=== PATIENT | male | born 1970 | race African-American/Black ===

== ENCOUNTER 2021-03-26 02:54 | Emergency (ER) | payer MEDICAID ==
[~2021-03-26] VITALS: Ht 175.3 cm; Wt 72.6 kg
[2021-03-26] MEDS ORDERED: ALUM & MAG HYDROX-SIMETH LIQ(MAALOX) 30 ML PO ONE (03:30)
[2021-03-26] MEDS ORDERED: DONNATAL 5ml ORAL Elix (BELLADONNA ALK-PHENOBARB) PO ONE (03:30)
[2021-03-26] MEDS ORDERED: LIDOCAINE VISCOUS 2% 15ML UD PO ONE (03:30)
[2021-03-26 03:53] LABS: Basophils # (auto) 0 10 ^3/uL (0-0.2); Basophils % (auto) 0.4 % (0.0-2.0); Eosinophils # (auto) 0 10 ^3/uL (0-0.8); Eosinophils % (auto) 0.1 % (0.0-7.0); Hematocrit 50.7 % (41.0-53.0); Hemoglobin 16.3 g/dL (13.5-17.5); Lymphocytes # (auto) 1.4 10 ^3/uL (0.4-5.4); Mean Corpuscular Hemoglobin 29.3 pg (28.0-32.0); Mean Corpuscular Hgb Conc. 32.2 g/dL (32.0-36.0); Mean Corpuscular Volume 91.1 fL (80.0-100.0); Monocytes # (auto) 0.6 10 ^3/uL (0-1.3); Monocytes % (auto) 5.4 % (0.0-12.0); Neutrophils # (auto) 9.6 10 ^3/uL (1.6-8.6); Neutrophils % (auto) 82.1 % (37.0-80.0); Red Blood Cells 5.57 10^6/uL (4.5-5.90); White Blood Cell 11.7 10^3/uL (4.4-10.8)
[2021-03-26 04:12] LABS: Albumin 3.4 g/dL (3.4-5.0); Calcium 9.3 mg/dL (8.5-10.1); Potassium 4.1 mmol/L (3.5-5.1)
[2021-03-26 04:13] LABS: INR 1.06 (0.9-1.15); Partial Thromboplastin Time 27.4 sec (23.6-33.0)
[2021-03-26 04:17] LABS: Bilirubin, Total 0.6 mg/dL (0.2-1.0); Total Protein 8.3 g/dL (6.4-8.2)
[2021-03-26] MEDS ORDERED: LIDOCAINE VISCOUS 2% 15ML UD ONE (04:35)
[2021-03-26] MEDS ORDERED: PROCHLORPERAZINE EDISYLATE 5 MG/ML 2ML VIAL IV ONE (04:45)
[2021-03-26] MEDS ORDERED: SODIUM CHLORIDE 0.9% 1,000 ML IV ONE ×2 (04:45)
[2021-03-26] MEDS ORDERED: MORPHINE SULFATE 4 MG/ML SYR/VIAL IV ONE (04:45)
[2021-03-26] MEDS ORDERED: metroNIDAZOLE 500MG/100ML 100 ML IV ONE (05:00)
[2021-03-26] MEDS ORDERED: cefTRIAXone 1GM/50ML D5W 50 ML IV ONE (05:00)
[2021-03-26 07:36] VITALS: BP 138/83
== END 2021-03-26 07:46 | disposition home or self-care (01) ==
LOC: EDBD 02:54 → ER 02:54
DX: K52.9 Noninfective gastroenteritis and colitis, unspecified (principal); R73.9 Hyperglycemia, unspecified
CPT/HCPCS: 36415; 74176; 80053; 83690; 84484; 85025; 85610; 85730; 96365; 96367; 96375; 99285; J0696; J0780; J2270; J3490; J7030

== ENCOUNTER 2021-03-28 10:19 | Inpatient (IN) | payer MEDICAID ==
[~2021-03-28] VITALS: Ht 182.9 cm; Wt 63.5 kg
[2021-03-28] MEDS ORDERED: ONDANSETRON HCL 4 MG/2 ML VIAL IV ONE (10:45)
[2021-03-28] MEDS ORDERED: MORPHINE SULFATE 4 MG/ML SYR/VIAL IV ONE (10:45)
[2021-03-28] MEDS ORDERED: SODIUM CHLORIDE 0.9% 1,000 ML IVB ONE (10:45)
[2021-03-28] MEDS ORDERED: cefTRIAXone 1GM/50ML D5W 50 ML IV ONE (12:45)
[2021-03-28] MEDS ORDERED: PANTOPRAZOLE 40 MG/10 ML VIAL INJ IV ONE (12:45)
[2021-03-28] MEDS ORDERED: metroNIDAZOLE 500MG/100ML 100 ML IV ONE (12:45)
[2021-03-28 13:29] LABS: Basophils # (auto) 0 10 ^3/uL (0-0.2); Basophils % (auto) 0.2 % (0.0-2.0); Eosinophils # (auto) 0 10 ^3/uL (0-0.8); Hematocrit 49.3 % (41.0-53.0); Lymphocytes # (auto) 0.9 10 ^3/uL (0.4-5.4); Mean Corpuscular Hemoglobin 29.4 pg (28.0-32.0); Mean Corpuscular Hgb Conc. 32.5 g/dL (32.0-36.0); Mean Corpuscular Volume 90.4 fL (80.0-100.0); Monocytes # (auto) 1.5 10 ^3/uL (0-1.3); Monocytes % (auto) 8.4 % (0.0-12.0); Neutrophils # (auto) 15.3 10 ^3/uL (1.6-8.6); Neutrophils % (auto) 86.4 % (37.0-80.0); Red Blood Cells 5.45 10^6/uL (4.5-5.90); Red Cell Distribution Width 15.1 % (11.8-14.3); White Blood Cell 17.7 10^3/uL (4.4-10.8)
[2021-03-28 13:46] LABS: INR 1.07 (0.9-1.15); Partial Thromboplastin Time 27.1 sec (23.6-33.0)
[2021-03-28 13:47] LABS: Albumin 3.1 g/dL (3.4-5.0); Calcium 8.7 mg/dL (8.5-10.1); Potassium 3.8 mmol/L (3.5-5.1)
[2021-03-28 13:51] LABS: BUN/Creatinine Ratio 18.7; Bilirubin, Total 0.7 mg/dL (0.2-1.0); Total Protein 7.8 g/dL (6.4-8.2)
[2021-03-28] MEDS: PANTOPRAZOLE 40 MG/10 ML VIAL INJ IV SCH (21:30)
[2021-03-28] MEDS: cefTRIAXone 1GM/50ML D5W 50 ML IV SCH (21:45)
[2021-03-28] MEDS ORDERED: LORazepam 2MG/ML-1ML VIAL IV ONE (22:00)
[2021-03-28] MEDS: metroNIDAZOLE 500MG/100ML 100 ML IV SCH (22:30)
[2021-03-29] MEDS: metroNIDAZOLE 500MG/100ML 100 ML IV SCH ×3 (06:06→22:00)
[2021-03-29] MEDS ORDERED: LIDOCAINE VISCOUS 2% 15ML UD ONE (07:01)
[2021-03-29] MEDS ORDERED: MIDAZOLAM HCL 5 MG/ML-1ML VIAL ONE (07:01)
[2021-03-29] MEDS ORDERED: diphenhdrAMINE HCL 50 MG/1 ML VL ONE (07:01)
[2021-03-29] MEDS ORDERED: fentaNYL CITRATE 100 MCG/2 ML VL ONE (07:01)
[2021-03-29] MEDS ORDERED: cefTRIAXone SODIUM 500 MG in D5W 5% 12.5 ML IV ONE (07:15)
[2021-03-29 08:36] LABS: Potassium 4.3 mmol/L (3.5-5.1)
[2021-03-29 08:38] LABS: Urine Bacteria NONE SEEN /hpf (None Seen); Urine Blood Negative /uL (Negative); Urine Mucus FEW (None Seen); Urine Specific Gravity 1.021 (1.001-1.035); Urine WBC 5 /hpf (0 - 3)
[2021-03-29 08:41] LABS: BUN/Creatinine Ratio 15.2; Calcium 7.9 mg/dL (8.5-10.1)
[2021-03-29] MEDS ORDERED: GASTROGRAFIN 120 ML SOL ONE (08:49)
[2021-03-29] MEDS: cefTRIAXone 1GM/50ML D5W 50 ML IV SCH ×2 (09:00→21:16)
[2021-03-29 09:01] LABS: Basophils # (auto) 0.1 10 ^3/uL (0-0.2); Basophils % (auto) 0.6 % (0.0-2.0); Eosinophils # (auto) 0 10 ^3/uL (0-0.8); Eosinophils % (auto) 0.1 % (0.0-7.0); Hematocrit 41.7 % (41.0-53.0); Hemoglobin 13.6 g/dL (13.5-17.5); Lymphocytes # (auto) 1.7 10 ^3/uL (0.4-5.4); Lymphocytes % (auto) 13.5 % (10.0-50.0); Mean Corpuscular Hemoglobin 29.5 pg (28.0-32.0); Mean Corpuscular Hgb Conc. 32.7 g/dL (32.0-36.0); Mean Corpuscular Volume 90.4 fL (80.0-100.0); Monocytes # (auto) 1.2 10 ^3/uL (0-1.3); Monocytes % (auto) 9.6 % (0.0-12.0); Neutrophils # (auto) 9.5 10 ^3/uL (1.6-8.6); Neutrophils % (auto) 76.2 % (37.0-80.0); Nucleated Red Blood Cells % 0.1 %; Red Blood Cells 4.61 10^6/uL (4.5-5.90); Red Cell Distribution Width 14.6 % (11.8-14.3); White Blood Cell 12.5 10^3/uL (4.4-10.8)
[2021-03-29] MEDS ORDERED: MORPHINE SULFATE INJECTION 2 MG/ML SYRG IV PRN (09:15)
[2021-03-29] MEDS ORDERED: NITROGLYCERIN 0.4 MG SL TAB SL PRN (09:15)
[2021-03-29] MEDS ORDERED: ONDANSETRON HCL 4 MG/2 ML VIAL IV PRN (09:15)
[2021-03-29] MEDS: PANTOPRAZOLE 40 MG/10 ML VIAL INJ IV SCH ×2 (09:35→21:16)
[2021-03-29] MEDS ORDERED: D5W/SOD CHL 0.45% 1,000 ML IV SCH (13:00)
[2021-03-29] MEDS ORDERED: hydrALAZINE HCL 20 MG/ML VL IV PRN (13:00)
[2021-03-29] MEDS ORDERED: ACETAMINOPHEN 325 MG TAB PO PRN (13:00)
[2021-03-29] MEDS ORDERED: HYDROcodone-ACET 5/325MG TAB PO PRN (13:00)
[2021-03-29] MEDS: SUCRALFATE 1 GM/10 ML ORAL SUSP PO SCH ×3 (14:31→21:17)
[2021-03-29] MEDS: D5W/SOD CHL 0.45% 1,000 ML IV SCH (17:07)
[2021-03-29 17:09] VITALS: BP 115/70
[2021-03-29 22:00] VITALS: BP 104/63
[2021-03-30] MEDS ORDERED: MORPHINE SULFATE INJECTION 2 MG/ML SYRG IV ONE (02:45)
[2021-03-30] MEDS: D5W/SOD CHL 0.45% 1,000 ML IV SCH ×2 (02:59→13:00)
[2021-03-30 05:00] VITALS: BP 109/63
[2021-03-30 06:05] LABS: Basophils # (auto) 0.1 10 ^3/uL (0-0.2); Basophils % (auto) 1.3 % (0.0-2.0); Eosinophils # (auto) 0.1 10 ^3/uL (0-0.8); Eosinophils % (auto) 1.2 % (0.0-7.0); Hemoglobin 12.1 g/dL (13.5-17.5); Lymphocytes # (auto) 1.5 10 ^3/uL (0.4-5.4); Lymphocytes % (auto) 25.1 % (10.0-50.0); Mean Corpuscular Hemoglobin 29.9 pg (28.0-32.0); Mean Corpuscular Hgb Conc. 32.8 g/dL (32.0-36.0); Monocytes # (auto) 0.7 10 ^3/uL (0-1.3); Monocytes % (auto) 11.5 % (0.0-12.0); Neutrophils # (auto) 3.8 10 ^3/uL (1.6-8.6); Neutrophils % (auto) 60.9 % (37.0-80.0); Nucleated Red Blood Cells % 0.1 %; Red Blood Cells 4.06 10^6/uL (4.5-5.90); Red Cell Distribution Width 14.7 % (11.8-14.3); White Blood Cell 6.2 10^3/uL (4.4-10.8)
[2021-03-30 06:11] LABS: Calcium 8.2 mg/dL (8.5-10.1); Potassium 4.4 mmol/L (3.5-5.1)
[2021-03-30] MEDS: metroNIDAZOLE 500MG/100ML 100 ML IV SCH ×2 (06:53→14:00)
[2021-03-30] MEDS: SUCRALFATE 1 GM/10 ML ORAL SUSP PO SCH ×2 (06:54→12:07)
[2021-03-30 09:00] VITALS: BP 122/80
[2021-03-30] MEDS: PANTOPRAZOLE 40 MG/10 ML VIAL INJ IV SCH (09:07)
[2021-03-30] MEDS: cefTRIAXone 1GM/50ML D5W 50 ML IV SCH (09:07)
[2021-03-30] MEDS ORDERED: METR500T PO (12:42)
[2021-03-30] MEDS ORDERED: LEVO500T31 PO (12:42)
[2021-03-30] MEDS ORDERED: SUCR1SUS10 PO (12:42)
[2021-03-30] MEDS ORDERED: PANT40TA2 PO (12:42)
[2021-03-30 13:00] VITALS: BP 102/58
[2021-03-30 15:00] VITALS: BP 102/50
== END 2021-03-30 16:15 | disposition home or self-care (01) | DRG 254 ==
LOC: EDBD 10:19 → ER 10:19 → TELE 03-29 09:06 → TELE-WESTW 03-29 12:39
PROVIDERS: ADMIT Internal Medicine; ATTEND Internal Medicine
PROC: 0DH67UZ Insertion of Feeding Device into Stomach, Via Natural or Artificial Opening (ICD-10-PCS; 2021-03-29)
PROC: 0DB68ZX Excision of Stomach, Via Natural or Artificial Opening Endoscopic, Diagnostic (ICD-10-PCS; principal; 2021-03-29 09:00)
DX: K31.1 Adult hypertrophic pyloric stenosis (principal); E27.8 Other specified disorders of adrenal gland; K29.70 Gastritis, unspecified, without bleeding; K27.9 Peptic ulcer, site unspecified, unspecified as acute or chronic, without hemorrhage or perforation; K21.00 Gastro-esophageal reflux disease with esophagitis, without bleeding; F12.90 Cannabis use, unspecified, uncomplicated; N39.0 Urinary tract infection, site not specified; D72.829 Elevated white blood cell count, unspecified; Z87.11 Personal history of peptic ulcer disease; Z20.822 Contact with and (suspected) exposure to COVID-19
CPT/HCPCS: 36415; 43239; 71045; 74176; 80048; 80053; 81001; 83605; 83690; 85025; 85610; 85730; 87040; 87077; 87426; 96361; 96365; 96375; C9113; G0378; J0696; J2250; J2405; J3490; J7042; J7060

== ENCOUNTER 2021-11-15 09:39 | Emergency (ER) | payer MEDICAID ==
[~2021-11-15 09:39] MED LIST: LEVO500T31 PO; METR500T PO; PANT40TA2 PO; SUCR1SUS10 PO
[2021-11-15] MEDS ORDERED: ONDANSETRON HCL 4 MG/2 ML VIAL IV ONE (10:15)
[2021-11-15] MEDS ORDERED: MORPHINE SULFATE 4 MG/ML SYR/VIAL IV ONE (10:15)
[2021-11-15 10:42] LABS: Basophils # (auto) 0 10 ^3/uL (0-0.2); Basophils % (auto) 0.2 % (0.0-2.0); Eosinophils # (auto) 0.1 10 ^3/uL (0-0.8); Eosinophils % (auto) 0.4 % (0.0-7.0); Hematocrit 33.9 % (41.0-53.0); Hemoglobin 10.9 g/dL (13.5-17.5); Lymphocytes # (auto) 1.1 10 ^3/uL (0.4-5.4); Lymphocytes % (auto) 8.7 % (10.0-50.0); Mean Corpuscular Hemoglobin 28.6 pg (28.0-32.0); Mean Corpuscular Hgb Conc. 32.1 g/dL (32.0-36.0); Mean Corpuscular Volume 89.2 fL (80.0-100.0); Monocytes # (auto) 0.9 10 ^3/uL (0-1.3); Monocytes % (auto) 6.7 % (0.0-12.0); Neutrophils # (auto) 10.6 10 ^3/uL (1.6-8.6); Red Cell Distribution Width 14.7 % (11.8-14.3); White Blood Cell 12.7 10^3/uL (4.4-10.8)
[2021-11-15] MEDS ORDERED: SODIUM CHLORIDE 0.9% 1,000 ML IV ONE (10:45)
[2021-11-15 11:00] LABS: Albumin 2.7 g/dL (3.4-5.0); Calcium 8.8 mg/dL (8.5-10.1); Potassium 3.6 mmol/L (3.5-5.1)
[2021-11-15 11:05] LABS: BUN/Creatinine Ratio 11.1; Bilirubin, Total 0.5 mg/dL (0.2-1.0); Total Protein 7.5 g/dL (6.4-8.2)
[2021-11-15 11:35] LABS: INR 0.99 (0.9-1.15); Partial Thromboplastin Time 29.4 sec (24.6-33.4)
[2021-11-15 12:36] LABS: Urine Amorphous Crystal MANY /hpf (None Seen); Urine Bacteria FEW /hpf (None Seen); Urine Blood Negative /uL (Negative); Urine Budding Yeast MODERATE /hpf (None Seen); Urine Specific Gravity 1.026 (1.001-1.035); Urine WBC 13 /hpf (0 - 3)
[2021-11-15 12:42] LABS: Alcohol, Urine < 3.0 mg/dL (0-10); Amphetamine Screen, Urine POSITIVE (NEGATIVE); Barbiturate Scree,Urine NEGATIVE (NEGATIVE); Benzodiazephine Screen, Urine NEGATIVE (NEGATIVE); Cannabinoid Screen, Urine POSITIVE (NEGATIVE); Cocaine Screen, Urine NEGATIVE (NEGATIVE); Opiate Scree,Urine POSITIVE (NEGATIVE); Phencyclidine Screen, Urine NEGATIVE (NEGATIVE)
[2021-11-15] MEDS ORDERED: CEPH-509 PO (12:56)
[2021-11-15 14:08] VITALS: BP 131/90
== END 2021-11-15 14:25 | disposition home or self-care (01) ==
LOC: ER 09:39 → EDBD 09:39 → ER 14:10
DX: R10.84 Generalized abdominal pain (principal); F12.10 Cannabis abuse, uncomplicated; F15.10 Other stimulant abuse, uncomplicated; Z79.2 Long term (current) use of antibiotics; Z79.899 Other long term (current) drug therapy
CPT/HCPCS: 36415; 74176; 80053; 80307; 81001; 85025; 85610; 85730; 93005; 96374; 96375; 99285; J2270; J2405; J7030

== ENCOUNTER 2021-11-19 11:33 | Inpatient (IN) | payer MEDICAID ==
[2021-11-19] VITALS (13 sets, daily range): BP systolic 92–170; BP diastolic 52–92
[~2021-11-19] VITALS: Ht 185.4 cm; Wt 59.3 kg
[~2021-11-19 11:33] MED LIST changes: +CEPH-509 PO
[2021-11-19] MEDS ORDERED: SODIUM CHLORIDE 0.9% 1,000 ML IVB ONE (12:00)
[2021-11-19] MEDS ORDERED: PROCHLORPERAZINE EDISYLATE 5 MG/ML 2ML VIAL IV ONE (12:00)
[2021-11-19] MEDS ORDERED: MORPHINE SULFATE 4 MG/ML SYR/VIAL IV ONE (12:00)
[2021-11-19] MEDS ORDERED: SODIUM CHLORIDE 0.9% 1,000 ML IV ONE ×2 (12:00→22:45)
[2021-11-19] MEDS ORDERED: LORazepam 2MG/ML-1ML VIAL IV ONE (12:30)
[2021-11-19] MEDS ORDERED: MIDAZOLAM HCL 2MG/2ML 2ml VIAL (1mg/ml) IV ONE (12:45)
[2021-11-19] MEDS ORDERED: NOREPINEPHRINE 8 MG/250ML KIT 250 ML IV ONE (13:06)
[2021-11-19] MEDS ORDERED: IOHEXOL 350 MG/ML 100ML IJ ONE ×2 (13:10→14:45)
[2021-11-19 13:43] LABS: Albumin 1.9 g/dL (3.4-5.0); Calcium 7.8 mg/dL (8.5-10.1); Potassium 4.6 mmol/L (3.5-5.1)
[2021-11-19 13:45] LABS: BUN/Creatinine Ratio 18.3
[2021-11-19 13:52] LABS: Bilirubin, Total 0.3 mg/dL (0.2-1.0); Total Protein 5.3 g/dL (6.4-8.2)
[2021-11-19] MEDS ORDERED: DEXTROSE (50%) 50ML SYRG IV PRN (14:45)
[2021-11-19] MEDS ORDERED: InsuLIN R (HUMAN) 100 UNITS in SODIUM CHL 0.9% 99 ML IV SCH (14:45)
[2021-11-19] MEDS ORDERED: SODIUM CHLORIDE 0.9% 2,000 ML IV ONE (14:45)
[2021-11-19] MEDS: ACCU-CHEK COMFORT CURVE STRIP VI SCH ×3 (15:00→19:06)
[2021-11-19 15:02] LABS: Mean Corpuscular Hgb Conc. 28.5 g/dL (32.0-36.0)
[2021-11-19 15:05] LABS: Hematocrit 16.6 % (41.0-53.0); Mean Corpuscular Hemoglobin 28.3 pg (28.0-32.0); Mean Corpuscular Volume 99.1 fL (80.0-100.0); Red Blood Cells 1.67 10^6/uL (4.5-5.90); Red Cell Distribution Width 15.1 % (11.8-14.3); White Blood Cell 11.6 10^3/uL (4.4-10.8)
[2021-11-19] MEDS ORDERED: SUCCINYLCHOLINE CHLORIDE 20 MG/ML 10ML VIAL IV ONE ×2 (15:30→15:45)
[2021-11-19] MEDS ORDERED: ETOMIDATE (2MG/ML) 20ML VIAL IV ONE ×2 (15:30→15:45)
[2021-11-19] MEDS ORDERED: PROPOFOL 100 ML IV ONE (15:30)
[2021-11-19 15:31] LABS: Hemoglobin 4.7 g/dL (13.5-17.5)
[2021-11-19 15:32] LABS: Basophils % (manual) 0 (0.0-2.0); Blast Cells 0; Eosinophils % (manual) 0 (0-7); Promyelocytes % 0
[2021-11-19] MEDS ORDERED: MIDAZOLAM DRIP 50 mg/50mL 50 ML IV ONE (15:34)
[2021-11-19] MEDS: NOREPINEPHRINE 8 MG/250ML KIT 250 ML IV SCH (15:45)
[2021-11-19] MEDS: PROPOFOL 100 ML IV SCH (15:45)
[2021-11-19] MEDS: MIDAZOLAM DRIP 50 mg/50mL 50 ML IV SCH (15:50)
[2021-11-19 16:21] LABS: Urine Bacteria FEW /hpf (None Seen); Urine Blood TRACE /uL (Negative); Urine Hyaline Cast FEW /lpf (0 - 2); Urine Mucus FEW (None Seen); Urine Specific Gravity 1.034 (1.001-1.035); Urine WBC 7 /hpf (0 - 3)
[2021-11-19 16:22] LABS: Band Neutrophils % (manual) 17; Lymphocytes % (manual) 17 (10.0-50.0); Metamyelocytes % 3; Monocytes % (manual) 7 (0-12); Myelocytes % 1
[2021-11-19 16:23] LABS: Reactive Lymphocytes 1
[2021-11-19 16:29] LABS: Amphetamine Screen, Urine POSITIVE (NEGATIVE); Barbiturate Scree,Urine NEGATIVE (NEGATIVE); Benzodiazephine Screen, Urine POSITIVE (NEGATIVE); Cannabinoid Screen, Urine POSITIVE (NEGATIVE); Cocaine Screen, Urine NEGATIVE (NEGATIVE); Opiate Scree,Urine NEGATIVE (NEGATIVE); Phencyclidine Screen, Urine NEGATIVE (NEGATIVE)
[2021-11-19] MEDS: fentaNYL Drip 2500mCg/250mlNS 250 ML IV SCH ×2 (16:56→18:16)
[2021-11-19] MEDS ORDERED: LABETALOL HCL 5 MG/ML 4ML SYRINGE IV PRN (17:15)
[2021-11-19] MEDS ORDERED: SODIUM BICARBONATE 8.4 % INJ 50ML VIAL IV ONE (17:15)
[2021-11-19] MEDS ORDERED: SODIUM BICARBONATE 50ML VIAL 150 ML in D5W 5% 1,000 ML IV ONE (17:15)
[2021-11-19] MEDS ORDERED: HYDROcodone-ACET 5/325MG TAB PO PRN (17:15)
[2021-11-19] MEDS ORDERED: ACETAMINOPHEN 325 MG TAB PO PRN (17:15)
[2021-11-19] MEDS ORDERED: POLYETHYLENE GLYCOL 17 GM PWDR PO ONE (17:15)
[2021-11-19] MEDS ORDERED: DOCUSATE SOD 100 MG CAP PO PRN (17:15)
[2021-11-19] MEDS ORDERED: BISACODYL 5 MG EC TAB PO ONE (17:15)
[2021-11-19] MEDS ORDERED: DOCUSATE SOD 100 MG CAP PO ONE (17:15)
[2021-11-19] MEDS ORDERED: ONDANSETRON HCL 4 MG/2 ML VIAL IV PRN (17:15)
[2021-11-19] MEDS ORDERED: VANCOMYCIN PER PHARMACY 0 MG IV SCH (17:15)
[2021-11-19] MEDS ORDERED: fentaNYL Drip 2500mCg/250mlNS 250 ML IV ONE (18:05)
[2021-11-19] MEDS: PIPERACILLIN-TAZO 4.5GM 100 ML IV SCH ×2 (18:37→22:17)
[2021-11-19 18:41] LABS: Basophils # (auto) 0 10 ^3/uL (0-0.2); Eosinophils # (auto) 0 10 ^3/uL (0-0.8); Eosinophils % (auto) 0.1 % (0.0-7.0); Lymphocytes # (auto) 0.8 10 ^3/uL (0.4-5.4)
[2021-11-19 18:43] LABS: Basophils % (auto) 0.3 % (0.0-2.0); Hematocrit 11.9 % (41.0-53.0); Lymphocytes % (auto) 22.2 % (10.0-50.0); Mean Corpuscular Hemoglobin 30.7 pg (28.0-32.0); Mean Corpuscular Hgb Conc. 34.4 g/dL (32.0-36.0); Mean Corpuscular Volume 89.2 fL (80.0-100.0); Monocytes # (auto) 0.3 10 ^3/uL (0-1.3); Monocytes % (auto) 7.3 % (0.0-12.0); Neutrophils # (auto) 2.6 10 ^3/uL (1.6-8.6); Neutrophils % (auto) 70.1 % (37.0-80.0); Red Blood Cells 1.33 10^6/uL (4.5-5.90); Red Cell Distribution Width 14.1 % (11.8-14.3); White Blood Cell 3.7 10^3/uL (4.4-10.8)
[2021-11-19 18:56] LABS: Nucleated Red Blood Cells % 5.2 %
[2021-11-19 18:59] LABS: BUN/Creatinine Ratio 21.6; Calcium 6.4 mg/dL (8.5-10.1)
[2021-11-19 19:01] LABS: Hemoglobin 4.1 g/dL (13.5-17.5)
[2021-11-19 19:02] LABS: Lactic Acid w/Reflex 6.9 mmol/L (0.4-2.0)
[2021-11-19] MEDS ORDERED: VANCOMYCIN 1GM/250ML 250 ML IV SCH (20:00)
[2021-11-19 21:12] LABS: INR 1.18 (0.9-1.15); Partial Thromboplastin Time 28.5 sec (24.6-33.4)
[2021-11-19] MEDS: SENNA 8.6 MG TAB PO SCH (22:00)
[2021-11-19] MEDS: SODIUM CHLOR 0.9% PF (SALINE LOCK) 10ML VIAL/SYR IV SCH (22:08)
[2021-11-19] MEDS: PANTOPRAZOLE 40 MG/10 ML VIAL INJ IV SCH (22:15)
[2021-11-19 22:30] LABS: Basophils # (auto) 0 10 ^3/uL (0-0.2); Eosinophils # (auto) 0 10 ^3/uL (0-0.8); Monocytes # (auto) 0.2 10 ^3/uL (0-1.3); Neutrophils % (auto) 71.3 % (37.0-80.0)
[2021-11-19 22:32] LABS: Basophils % (auto) 0.1 % (0.0-2.0); Eosinophils % (auto) 0.2 % (0.0-7.0); Hematocrit 18.8 % (41.0-53.0); Lymphocytes # (auto) 0.8 10 ^3/uL (0.4-5.4); Lymphocytes % (auto) 22.2 % (10.0-50.0); Mean Corpuscular Hemoglobin 29.5 pg (28.0-32.0); Mean Corpuscular Volume 89.6 fL (80.0-100.0); Monocytes % (auto) 6.2 % (0.0-12.0); Neutrophils # (auto) 2.7 10 ^3/uL (1.6-8.6); Red Cell Distribution Width 13.9 % (11.8-14.3); White Blood Cell 3.7 10^3/uL (4.4-10.8)
[2021-11-19 22:40] LABS: Nucleated Red Blood Cells % 4.9 %
[2021-11-19 22:51] LABS: BUN/Creatinine Ratio 22.9; Calcium 6.2 mg/dL (8.5-10.1); Hemoglobin 6.2 g/dL (13.5-17.5); Potassium 4.5 mmol/L (3.5-5.1)
[2021-11-19 23:31] LABS: Hematocrit 23.9 % (41.0-53.0)
[2021-11-19] MEDS ORDERED: CALCIUM CHL(10%) 100MG/ML 10ML VIAL IV ONE (23:52)
[2021-11-20] VITALS (94 sets, daily range): BP systolic 89–151; BP diastolic 7–86
[2021-11-20] MEDS ORDERED: fentaNYL CITRATE 100 MCG/2 ML VL ONE (00:01)
[2021-11-20] MEDS ORDERED: MIDAZOLAM HCL 2MG/2ML 2ml VIAL (1mg/ml) ONE (00:01)
[2021-11-20] MEDS ORDERED: HYDROmorphone HCL 2 MG/ML VL/or syr ONE (00:01)
[2021-11-20] MEDS ORDERED: ROCURONIUM 10MG/ML 10ML VIAL IV ONE (00:03)
[2021-11-20 03:47] LABS: Basophils # (auto) 0 10 ^3/uL (0-0.2); Basophils % (auto) 0.3 % (0.0-2.0); Eosinophils # (auto) 0 10 ^3/uL (0-0.8); Eosinophils % (auto) 0.1 % (0.0-7.0); Hemoglobin 11.4 g/dL (13.5-17.5); Lymphocytes # (auto) 0.6 10 ^3/uL (0.4-5.4); Lymphocytes % (auto) 8.4 % (10.0-50.0); Mean Corpuscular Hemoglobin 28.5 pg (28.0-32.0); Mean Corpuscular Hgb Conc. 32.5 g/dL (32.0-36.0); Mean Corpuscular Volume 87.5 fL (80.0-100.0); Monocytes # (auto) 0.3 10 ^3/uL (0-1.3); Monocytes % (auto) 3.7 % (0.0-12.0); Neutrophils # (auto) 5.9 10 ^3/uL (1.6-8.6); Neutrophils % (auto) 87.5 % (37.0-80.0); Red Cell Distribution Width 14.4 % (11.8-14.3); White Blood Cell 6.7 10^3/uL (4.4-10.8)
[2021-11-20] MEDS: MIDAZOLAM DRIP 50 mg/50mL 50 ML IV SCH ×4 (03:49→17:59)
[2021-11-20 03:58] LABS: BUN/Creatinine Ratio 25.4; Calcium 6.9 mg/dL (8.5-10.1)
[2021-11-20] MEDS: SODIUM CHLOR 0.9% PF (SALINE LOCK) 10ML VIAL/SYR IV SCH ×3 (05:39→22:50)
[2021-11-20 08:53] LABS: Hematocrit 36.6 % (41.0-53.0); Hemoglobin 12.2 g/dL (13.5-17.5); Mean Corpuscular Hemoglobin 28.8 pg (28.0-32.0); Mean Corpuscular Hgb Conc. 33.3 g/dL (32.0-36.0); Mean Corpuscular Volume 86.7 fL (80.0-100.0); Red Blood Cells 4.22 10^6/uL (4.5-5.90); Red Cell Distribution Width 14.7 % (11.8-14.3); White Blood Cell 8.5 10^3/uL (4.4-10.8)
[2021-11-20 08:55] LABS: Basophils % (manual) 0 (0.0-2.0); Blast Cells 0; Promyelocytes % 0; Reactive Lymphocytes 0
[2021-11-20] MEDS: PANTOPRAZOLE 40 MG/10 ML VIAL INJ IV SCH ×2 (09:03→22:50)
[2021-11-20] MEDS: PIPERACILLIN-TAZO 4.5GM 100 ML IV SCH (09:03)
[2021-11-20] MEDS: POLYETHYLENE GLYCOL 17 GM PWDR PO SCH (09:04)
[2021-11-20 09:09] LABS: BUN/Creatinine Ratio 22.8; Calcium 7.2 mg/dL (8.5-10.1)
[2021-11-20 09:21] LABS: Band Neutrophils % (manual) 17; Eosinophils % (manual) 1 (0-7); Lymphocytes % (manual) 6 (10.0-50.0); Metamyelocytes % 3; Monocytes % (manual) 38 (0-12); Myelocytes % 1
[2021-11-20] MEDS: VANCOMYCIN 1GM/250ML 250 ML IV SCH ×2 (11:00→22:56)
[2021-11-20 13:38] LABS: Basophils # (auto) 0 10 ^3/uL (0-0.2); Eosinophils # (auto) 0 10 ^3/uL (0-0.8); Hematocrit 33.8 % (41.0-53.0); Hemoglobin 11.1 g/dL (13.5-17.5); Lymphocytes # (auto) 0.5 10 ^3/uL (0.4-5.4); Lymphocytes % (auto) 3.5 % (10.0-50.0); Mean Corpuscular Hemoglobin 28.8 pg (28.0-32.0); Mean Corpuscular Hgb Conc. 32.8 g/dL (32.0-36.0); Mean Corpuscular Volume 88.1 fL (80.0-100.0); Monocytes # (auto) 0.4 10 ^3/uL (0-1.3); Neutrophils # (auto) 12.6 10 ^3/uL (1.6-8.6); Neutrophils % (auto) 93.5 % (37.0-80.0); Red Blood Cells 3.83 10^6/uL (4.5-5.90); Red Cell Distribution Width 15.1 % (11.8-14.3); White Blood Cell 13.5 10^3/uL (4.4-10.8)
[2021-11-20 13:52] LABS: Calcium 7.1 mg/dL (8.5-10.1); Potassium 4.5 mmol/L (3.5-5.1)
[2021-11-20] MEDS: PIPERACILLIN-TAZOB 3.375GM 100 ML IV SCH ×2 (14:23→22:49)
[2021-11-20] MEDS: PROPOFOL 100 ML IV SCH (15:45)
[2021-11-20] MEDS: NOREPINEPHRINE 8 MG/250ML KIT 250 ML IV SCH ×2 (15:45→17:55)
[2021-11-20] MEDS ORDERED: PHENYLEPHRINE HCL 10 MG/ML VL IV ONE (16:28)
[2021-11-20] MEDS: SENNA 8.6 MG TAB PO SCH (22:00)
[2021-11-21] VITALS (102 sets, daily range): BP systolic 86–130; BP diastolic 56–83
[2021-11-21] MEDS: MIDAZOLAM DRIP 50 mg/50mL 50 ML IV SCH (00:41)
[2021-11-21] MEDS: fentaNYL Drip 2500mCg/250mlNS 250 ML IV SCH (00:42)
[2021-11-21 04:56] LABS: Basophils # (auto) 0 10 ^3/uL (0-0.2); Basophils % (auto) 0.2 % (0.0-2.0); Eosinophils # (auto) 0 10 ^3/uL (0-0.8); Hematocrit 30.7 % (41.0-53.0); Lymphocytes # (auto) 0.4 10 ^3/uL (0.4-5.4); Lymphocytes % (auto) 3.1 % (10.0-50.0); Mean Corpuscular Hemoglobin 28.5 pg (28.0-32.0); Mean Corpuscular Hgb Conc. 32.7 g/dL (32.0-36.0); Mean Corpuscular Volume 87.1 fL (80.0-100.0); Monocytes # (auto) 0.6 10 ^3/uL (0-1.3); Monocytes % (auto) 3.9 % (0.0-12.0); Neutrophils # (auto) 13.5 10 ^3/uL (1.6-8.6); Neutrophils % (auto) 92.8 % (37.0-80.0); Nucleated Red Blood Cells % 0.6 %; Red Blood Cells 3.52 10^6/uL (4.5-5.90); Red Cell Distribution Width 15.5 % (11.8-14.3); White Blood Cell 14.6 10^3/uL (4.4-10.8)
[2021-11-21 05:16] LABS: BUN/Creatinine Ratio 26.2; Calcium 7.5 mg/dL (8.5-10.1); Potassium 4.3 mmol/L (3.5-5.1)
[2021-11-21] MEDS: PIPERACILLIN-TAZOB 3.375GM 100 ML IV SCH ×3 (05:39→23:39)
[2021-11-21] MEDS: SODIUM CHLOR 0.9% PF (SALINE LOCK) 10ML VIAL/SYR IV SCH ×3 (05:39→23:38)
[2021-11-21] MEDS: PANTOPRAZOLE 40 MG/10 ML VIAL INJ IV SCH ×2 (10:46→23:38)
[2021-11-21] MEDS: POLYETHYLENE GLYCOL 17 GM PWDR PO SCH (10:46)
[2021-11-21] MEDS: VANCOMYCIN 1GM/250ML 250 ML IV SCH ×2 (10:46→23:38)
[2021-11-21] MEDS: NOREPINEPHRINE 8 MG/250ML KIT 250 ML IV SCH (10:54)
[2021-11-21] MEDS: PROPOFOL 100 ML IV SCH (15:45)
[2021-11-21] MEDS: SENNA 8.6 MG TAB PO SCH (22:00)
[2021-11-22] VITALS (80 sets, daily range): BP systolic 102–136; BP diastolic 62–82
[2021-11-22 04:28] LABS: Basophils # (auto) 0 10 ^3/uL (0-0.2); Basophils % (auto) 0.1 % (0.0-2.0); Eosinophils # (auto) 0 10 ^3/uL (0-0.8); Hematocrit 26.7 % (41.0-53.0); Hemoglobin 8.7 g/dL (13.5-17.5); Lymphocytes # (auto) 0.7 10 ^3/uL (0.4-5.4); Lymphocytes % (auto) 3.5 % (10.0-50.0); Mean Corpuscular Hemoglobin 28.4 pg (28.0-32.0); Mean Corpuscular Hgb Conc. 32.4 g/dL (32.0-36.0); Mean Corpuscular Volume 87.7 fL (80.0-100.0); Monocytes # (auto) 0.5 10 ^3/uL (0-1.3); Monocytes % (auto) 2.9 % (0.0-12.0); Neutrophils # (auto) 17.5 10 ^3/uL (1.6-8.6); Neutrophils % (auto) 93.5 % (37.0-80.0); Nucleated Red Blood Cells % 2.1 %; Red Blood Cells 3.05 10^6/uL (4.5-5.90); Red Cell Distribution Width 15.7 % (11.8-14.3); White Blood Cell 18.8 10^3/uL (4.4-10.8)
[2021-11-22 04:46] LABS: Calcium 7.8 mg/dL (8.5-10.1); Potassium 4.4 mmol/L (3.5-5.1)
[2021-11-22 04:48] LABS: BUN/Creatinine Ratio 28.2
[2021-11-22] MEDS: PIPERACILLIN-TAZOB 3.375GM 100 ML IV SCH (05:42)
[2021-11-22] MEDS: SODIUM CHLOR 0.9% PF (SALINE LOCK) 10ML VIAL/SYR IV SCH ×3 (05:44→22:05)
[2021-11-22] MEDS: NOREPINEPHRINE 8 MG/250ML KIT 250 ML IV SCH (05:45)
[2021-11-22] MEDS: VANCOMYCIN 1GM/250ML 250 ML IV SCH (11:10)
[2021-11-22] MEDS: PANTOPRAZOLE 40 MG/10 ML VIAL INJ IV SCH ×2 (11:11→22:04)
[2021-11-22] MEDS ORDERED: MEROPENEM 1GM IVPB 100 ML IV ONE (11:45)
[2021-11-22] MEDS ORDERED: TPN PER PHARMACY 0 ML IV SCH (13:15)
[2021-11-22 14:26] LABS: Magnesium 2.2 mg/dL (1.6-2.6); Phosphorus 2.8 mg/dL (2.5-4.90)
[2021-11-22] MEDS: MIDAZOLAM DRIP 50 mg/50mL 50 ML IV SCH (15:45)
[2021-11-22] MEDS: PROPOFOL 100 ML IV SCH (15:45)
[2021-11-22] MEDS: fentaNYL Drip 2500mCg/250mlNS 250 ML IV SCH (15:45)
[2021-11-22 15:46] LABS: Urine Bacteria NONE SEEN /hpf (None Seen); Urine Blood 1+ /uL (Negative); Urine Mucus FEW (None Seen); Urine Specific Gravity 1.019 (1.001-1.035); Urine WBC 35 /hpf (0 - 3)
[2021-11-22] MEDS ORDERED: ACETAMINOPHEN IV 1000 MG/100ML (10MG/ML) IV ONE (17:00)
[2021-11-22] MEDS: AMINO ACID INFUSION IN D10W 1,000 ML IV NR (20:00)
[2021-11-22] MEDS: SENNA 8.6 MG TAB PO SCH (22:00)
[2021-11-22] MEDS: MEROPENEM 1GM IVPB 100 ML IV SCH (22:41)
[2021-11-23] VITALS (14 sets, daily range): BP systolic 111–138; BP diastolic 60–84
[2021-11-23] MEDS ORDERED: DEXTROSE (50%) 50ML SYRG IV SCH
[2021-11-23] MEDS: ACCU-CHEK COMFORT CURVE STRIP VI SCH ×4 (00:21→17:36)
[2021-11-23] MEDS: VANCOMYCIN 1GM/250ML 250 ML IV SCH ×3 (00:21→23:14)
[2021-11-23 04:34] LABS: Basophils # (auto) 0 10 ^3/uL (0-0.2); Basophils % (auto) 0.1 % (0.0-2.0); Eosinophils # (auto) 0 10 ^3/uL (0-0.8); Eosinophils % (auto) 0.2 % (0.0-7.0); Hematocrit 27.5 % (41.0-53.0); Hemoglobin 8.9 g/dL (13.5-17.5); Lymphocytes # (auto) 1.3 10 ^3/uL (0.4-5.4); Lymphocytes % (auto) 5.9 % (10.0-50.0); Mean Corpuscular Hemoglobin 28.6 pg (28.0-32.0); Mean Corpuscular Hgb Conc. 32.4 g/dL (32.0-36.0); Monocytes # (auto) 0.6 10 ^3/uL (0-1.3); Monocytes % (auto) 2.6 % (0.0-12.0); Neutrophils # (auto) 20.7 10 ^3/uL (1.6-8.6); Neutrophils % (auto) 91.2 % (37.0-80.0); Nucleated Red Blood Cells % 2.3 %; Red Blood Cells 3.12 10^6/uL (4.5-5.90); Red Cell Distribution Width 15.7 % (11.8-14.3); White Blood Cell 22.7 10^3/uL (4.4-10.8)
[2021-11-23 04:39] LABS: Albumin 1.3 g/dL (3.4-5.0); Calcium 8.1 mg/dL (8.5-10.1); Magnesium 1.7 mg/dL (1.6-2.6); Potassium 3.4 mmol/L (3.5-5.1)
[2021-11-23 04:44] LABS: BUN/Creatinine Ratio 21.9; Bilirubin, Total 0.5 mg/dL (0.2-1.0); Phosphorus 1.3 mg/dL (2.5-4.90); Total Protein 5.5 g/dL (6.4-8.2)
[2021-11-23] MEDS: SODIUM CHLOR 0.9% PF (SALINE LOCK) 10ML VIAL/SYR IV SCH ×3 (05:21→20:22)
[2021-11-23] MEDS: MEROPENEM 1GM IVPB 100 ML IV SCH ×3 (05:22→20:22)
[2021-11-23] MEDS: InsuLIN REG 1unit/0.01ml Soln (100units/ml) SC SCH ×4 (05:26→17:36)
[2021-11-23] MEDS: PANTOPRAZOLE 40 MG/10 ML VIAL INJ IV SCH ×2 (08:48→20:21)
[2021-11-23] MEDS: AMINO ACID INFUSION IN D10W 1,000 ML IV NR (09:44)
[2021-11-23] MEDS ORDERED: ACETAMINOPHEN IV 1000 MG/100ML (10MG/ML) IV ONE (10:45)
[2021-11-23] MEDS ORDERED: POTASSIUM PHOSPHATE 44 MEQ in D5W 5% 250 ML IV ONE (11:45)
[2021-11-23] MEDS ORDERED: MAGNESIUM SULFATE 1GM/100ML 100 ML IV ONE (12:00)
[2021-11-23] MEDS: HYDROmorphone HCL 2 MG/ML VL/or syr IV PRN ×3 (13:23→23:14)
[2021-11-23] MEDS: fentaNYL Drip 2500mCg/250mlNS 250 ML IV SCH (15:45)
[2021-11-23] MEDS: MIDAZOLAM DRIP 50 mg/50mL 50 ML IV SCH (15:45)
[2021-11-23] MEDS: NOREPINEPHRINE 8 MG/250ML KIT 250 ML IV SCH (15:45)
[2021-11-23] MEDS: PROPOFOL 100 ML IV SCH (15:45)
[2021-11-23] MEDS: SENNA 8.6 MG TAB PO SCH (20:22)
[2021-11-23] MEDS: TPN PER PHARMACY IV NR ×6 (20:24)
[2021-11-24] VITALS (11 sets, daily range): BP systolic 109–129; BP diastolic 60–81
[2021-11-24] MEDS: ACCU-CHEK COMFORT CURVE STRIP VI SCH ×5 (00:05→23:48)
[2021-11-24] MEDS: InsuLIN REG 1unit/0.01ml Soln (100units/ml) SC SCH ×5 (00:08→23:48)
[2021-11-24 03:55] LABS: Basophils # (auto) 0.1 10 ^3/uL (0-0.2); Basophils % (auto) 0.7 % (0.0-2.0); Eosinophils # (auto) 0.1 10 ^3/uL (0-0.8); Eosinophils % (auto) 0.5 % (0.0-7.0); Hematocrit 26.7 % (41.0-53.0); Hemoglobin 8.8 g/dL (13.5-17.5); Lymphocytes # (auto) 0.7 10 ^3/uL (0.4-5.4); Lymphocytes % (auto) 4.5 % (10.0-50.0); Mean Corpuscular Hemoglobin 28.8 pg (28.0-32.0); Mean Corpuscular Volume 87.3 fL (80.0-100.0); Monocytes # (auto) 0.5 10 ^3/uL (0-1.3); Monocytes % (auto) 3.7 % (0.0-12.0); Neutrophils # (auto) 13.5 10 ^3/uL (1.6-8.6); Neutrophils % (auto) 90.6 % (37.0-80.0); Nucleated Red Blood Cells % 0.8 %; Red Blood Cells 3.06 10^6/uL (4.5-5.90); Red Cell Distribution Width 14.8 % (11.8-14.3); White Blood Cell 14.9 10^3/uL (4.4-10.8)
[2021-11-24 04:17] LABS: Albumin 1.4 g/dL (3.4-5.0); BUN/Creatinine Ratio 22.4; Calcium 7.1 mg/dL (8.5-10.1); Magnesium 2.1 mg/dL (1.6-2.6); Potassium 3.4 mmol/L (3.5-5.1)
[2021-11-24 04:20] LABS: Bilirubin, Total 0.3 mg/dL (0.2-1.0); Phosphorus 2.3 mg/dL (2.5-4.90); Total Protein 4.6 g/dL (6.4-8.2)
[2021-11-24] MEDS: MEROPENEM 1GM IVPB 100 ML IV SCH (05:11)
[2021-11-24] MEDS: SODIUM CHLOR 0.9% PF (SALINE LOCK) 10ML VIAL/SYR IV SCH ×3 (05:11→21:30)
[2021-11-24] MEDS: HYDROmorphone HCL 2 MG/ML VL/or syr IV PRN ×4 (08:18→21:40)
[2021-11-24] MEDS ORDERED: POTASSIUM PHOSPHATE 44 MEQ in D5W 5% 250 ML IV ONE (10:15)
[2021-11-24] MEDS: PANTOPRAZOLE 40 MG/10 ML VIAL INJ IV SCH ×2 (10:20→21:30)
[2021-11-24] MEDS: MICAFUNGIN SODIUM 100 MG in SODIUM CHL 0.9% 100 ML IV SCH (11:35)
[2021-11-24] MEDS: PIPERACILLIN-TAZOB 3.375GM 100 ML IV SCH ×3 (12:25→23:47)
[2021-11-24] MEDS ORDERED: POTASSIUM CHL 20MEQ/100ML 100 ML IV ONE (13:30)
[2021-11-24] MEDS ORDERED: TPN PER PHARMACY IV NR ×8 (20:00)
[2021-11-24] MEDS: TPN PER PHARMACY IV NR ×6 (20:16)
[2021-11-24] MEDS: SENNA 8.6 MG TAB PO SCH (21:30)
[2021-11-24] MEDS ORDERED: ACETAMINOPHEN 325 MG TAB PO ONE (22:00)
[2021-11-25 05:00] VITALS: BP 112/67
[2021-11-25] MEDS: PIPERACILLIN-TAZOB 3.375GM 100 ML IV SCH ×3 (05:38→17:53)
[2021-11-25] MEDS: SODIUM CHLOR 0.9% PF (SALINE LOCK) 10ML VIAL/SYR IV SCH ×3 (05:38→22:51)
[2021-11-25] MEDS: ACCU-CHEK COMFORT CURVE STRIP VI SCH ×3 (05:48→18:13)
[2021-11-25] MEDS: InsuLIN REG 1unit/0.01ml Soln (100units/ml) SC SCH ×3 (05:48→18:12)
[2021-11-25] MEDS: HYDROmorphone HCL 2 MG/ML VL/or syr IV PRN ×4 (05:54→20:58)
[2021-11-25 06:59] LABS: Basophils # (auto) 0 10 ^3/uL (0-0.2); Basophils % (auto) 0.1 % (0.0-2.0); Eosinophils # (auto) 0.1 10 ^3/uL (0-0.8); Hematocrit 28.7 % (41.0-53.0); Hemoglobin 9.4 g/dL (13.5-17.5); Lymphocytes % (auto) 7.7 % (10.0-50.0); Mean Corpuscular Hemoglobin 28.8 pg (28.0-32.0); Mean Corpuscular Hgb Conc. 32.9 g/dL (32.0-36.0); Mean Corpuscular Volume 87.7 fL (80.0-100.0); Monocytes # (auto) 0.8 10 ^3/uL (0-1.3); Monocytes % (auto) 6.8 % (0.0-12.0); Neutrophils # (auto) 10.4 10 ^3/uL (1.6-8.6); Neutrophils % (auto) 84.4 % (37.0-80.0); Red Blood Cells 3.27 10^6/uL (4.5-5.90); Red Cell Distribution Width 14.8 % (11.8-14.3); White Blood Cell 12.3 10^3/uL (4.4-10.8)
[2021-11-25 07:15] LABS: Albumin 1.5 g/dL (3.4-5.0); Calcium 7.4 mg/dL (8.5-10.1); Magnesium 2.2 mg/dL (1.6-2.6); Potassium 4.3 mmol/L (3.5-5.1)
[2021-11-25 07:18] LABS: BUN/Creatinine Ratio 22.9; Bilirubin, Total 0.2 mg/dL (0.2-1.0); Phosphorus 2.2 mg/dL (2.5-4.90); Total Protein 4.8 g/dL (6.4-8.2)
[2021-11-25 08:00] VITALS: BP 123/85
[2021-11-25] MEDS ORDERED: SODIUM PHOSP 40 MEQ in D5W 5% 250 ML IV ONE (08:45)
[2021-11-25] MEDS: PANTOPRAZOLE 40 MG/10 ML VIAL INJ IV SCH ×2 (09:50→22:51)
[2021-11-25 12:00] VITALS: BP 111/70
[2021-11-25] MEDS: MICAFUNGIN SODIUM 100 MG in SODIUM CHL 0.9% 100 ML IV SCH (14:01)
[2021-11-25 17:18] VITALS: BP 111/71
[2021-11-25] MEDS: SUCRALFATE 1 GM/10 ML ORAL SUSP PO SCH ×2 (17:52→22:50)
[2021-11-25] MEDS ORDERED: TPN PER PHARMACY IV NR ×10 (20:00)
[2021-11-25 22:00] VITALS: BP 106/65
[2021-11-25] MEDS: SENNA 8.6 MG TAB PO SCH (22:00)
[2021-11-26] MEDS: PIPERACILLIN-TAZOB 3.375GM 100 ML IV SCH ×5 (00:32→23:55)
[2021-11-26] MEDS: ACCU-CHEK COMFORT CURVE STRIP VI SCH ×2 (01:00→05:58)
[2021-11-26] MEDS: InsuLIN REG 1unit/0.01ml Soln (100units/ml) SC SCH ×2 (01:01→06:00)
[2021-11-26] MEDS: HYDROmorphone HCL 2 MG/ML VL/or syr IV PRN ×5 (01:02→23:55)
[2021-11-26] MEDS: SODIUM CHLOR 0.9% PF (SALINE LOCK) 10ML VIAL/SYR IV SCH ×3 (05:58→22:02)
[2021-11-26] MEDS: SUCRALFATE 1 GM/10 ML ORAL SUSP PO SCH ×4 (05:58→22:30)
[2021-11-26 06:29] LABS: Potassium 4.5 mmol/L (3.5-5.1)
[2021-11-26 06:31] LABS: Basophils # (auto) 0 10 ^3/uL (0-0.2); Basophils % (auto) 0.2 % (0.0-2.0); Eosinophils # (auto) 0.2 10 ^3/uL (0-0.8); Hemoglobin 9.9 g/dL (13.5-17.5); Lymphocytes # (auto) 1.2 10 ^3/uL (0.4-5.4); Lymphocytes % (auto) 6.5 % (10.0-50.0); Mean Corpuscular Hemoglobin 28.9 pg (28.0-32.0); Mean Corpuscular Volume 87.4 fL (80.0-100.0); Monocytes # (auto) 1.3 10 ^3/uL (0-1.3); Monocytes % (auto) 6.7 % (0.0-12.0); Neutrophils # (auto) 16.3 10 ^3/uL (1.6-8.6); Neutrophils % (auto) 85.6 % (37.0-80.0); Nucleated Red Blood Cells % 0.1 %; Red Blood Cells 3.44 10^6/uL (4.5-5.90); Red Cell Distribution Width 14.5 % (11.8-14.3)
[2021-11-26 06:35] LABS: Albumin 1.6 g/dL (3.4-5.0); Bilirubin, Total 0.4 mg/dL (0.2-1.0); Calcium 7.9 mg/dL (8.5-10.1); Magnesium 2.1 mg/dL (1.6-2.6); Phosphorus 2.7 mg/dL (2.5-4.90); Total Protein 5.9 g/dL (6.4-8.2)
[2021-11-26] MEDS: PANTOPRAZOLE 40 MG/10 ML VIAL INJ IV SCH ×2 (08:59→22:30)
[2021-11-26 09:00] VITALS: BP 125/84
[2021-11-26] MEDS: MICAFUNGIN SODIUM 100 MG in SODIUM CHL 0.9% 100 ML IV SCH (10:34)
[2021-11-26 13:00] VITALS: BP 113/78
[2021-11-26 16:52] VITALS: BP_SYST 107; BP_DIAS 75; BP_DIAS 95
[2021-11-26] MEDS ORDERED: TPN PER PHARMACY IV NR ×11 (20:00)
[2021-11-26 22:00] VITALS: BP 108/71
[2021-11-26] MEDS: SENNA 8.6 MG TAB PO SCH (22:00)
[2021-11-27 05:00] VITALS: BP 102/54
[2021-11-27] MEDS: HYDROmorphone HCL 2 MG/ML VL/or syr IV PRN ×4 (05:30→20:04)
[2021-11-27] MEDS: PIPERACILLIN-TAZOB 3.375GM 100 ML IV SCH ×3 (06:04→18:41)
[2021-11-27] MEDS: SODIUM CHLOR 0.9% PF (SALINE LOCK) 10ML VIAL/SYR IV SCH ×3 (06:05→21:47)
[2021-11-27] MEDS: SUCRALFATE 1 GM/10 ML ORAL SUSP PO SCH ×4 (06:25→21:47)
[2021-11-27 06:56] LABS: Potassium 4.4 mmol/L (3.5-5.1)
[2021-11-27 07:02] LABS: Albumin 1.6 g/dL (3.4-5.0); BUN/Creatinine Ratio 17.4; Bilirubin, Total 0.4 mg/dL (0.2-1.0); Calcium 8.1 mg/dL (8.5-10.1); Phosphorus 2.8 mg/dL (2.5-4.90); Total Protein 6.1 g/dL (6.4-8.2)
[2021-11-27 08:22] VITALS: BP 94/64
[2021-11-27] MEDS: MICAFUNGIN SODIUM 100 MG in SODIUM CHL 0.9% 100 ML IV SCH (10:47)
[2021-11-27] MEDS: PANTOPRAZOLE 40 MG/10 ML VIAL INJ IV SCH ×2 (10:47→21:47)
[2021-11-27 12:39] VITALS: BP 109/61
[2021-11-27 15:01] LABS: Hematocrit 31.8 % (41.0-53.0); Mean Corpuscular Hemoglobin 27.9 pg (28.0-32.0); Mean Corpuscular Hgb Conc. 31.3 g/dL (32.0-36.0); Red Blood Cells 3.57 10^6/uL (4.5-5.90); Red Cell Distribution Width 15.1 % (11.8-14.3); White Blood Cell 18.5 10^3/uL (4.4-10.8)
[2021-11-27 15:05] LABS: Basophils % (manual) 0 (0.0-2.0); Blast Cells 0; Metamyelocytes % 0; Myelocytes % 0; Promyelocytes % 0; Reactive Lymphocytes 0
[2021-11-27 16:01] LABS: Band Neutrophils % (manual) 3; Eosinophils % (manual) 2 (0-7); Lymphocytes % (manual) 5 (10.0-50.0); Monocytes % (manual) 3 (0-12)
[2021-11-27 16:51] VITALS: BP 116/71
[2021-11-27] MEDS: SENNA 8.6 MG TAB PO SCH (21:47)
[2021-11-27 22:00] VITALS: BP 115/71
[2021-11-28] MEDS: HYDROmorphone HCL 2 MG/ML VL/or syr IV PRN ×3 (01:12→20:24)
[2021-11-28] MEDS: PIPERACILLIN-TAZOB 3.375GM 100 ML IV SCH ×5 (01:12→23:43)
[2021-11-28 05:00] VITALS: BP 108/59
[2021-11-28] MEDS: SODIUM CHLOR 0.9% PF (SALINE LOCK) 10ML VIAL/SYR IV SCH ×3 (06:00→22:00)
[2021-11-28] MEDS: SUCRALFATE 1 GM/10 ML ORAL SUSP PO SCH ×4 (06:45→22:48)
[2021-11-28 09:30] VITALS: BP 107/69
[2021-11-28] MEDS: PANTOPRAZOLE 40 MG/10 ML VIAL INJ IV SCH ×2 (10:24→22:48)
[2021-11-28] MEDS: MICAFUNGIN SODIUM 100 MG in SODIUM CHL 0.9% 100 ML IV SCH (10:24)
[2021-11-28 13:11] VITALS: BP 108/66
[2021-11-28 15:07] LABS: Basophils # (auto) 0 10 ^3/uL (0-0.2); Eosinophils # (auto) 0.1 10 ^3/uL (0-0.8); Neutrophils # (auto) 8.8 10 ^3/uL (1.6-8.6)
[2021-11-28 15:09] LABS: Basophils % (auto) 0.3 % (0.0-2.0); Eosinophils % (auto) 0.5 % (0.0-7.0); Hematocrit 30.5 % (41.0-53.0); Lymphocytes # (auto) 0.9 10 ^3/uL (0.4-5.4); Lymphocytes % (auto) 8.3 % (10.0-50.0); Mean Corpuscular Hemoglobin 28.4 pg (28.0-32.0); Mean Corpuscular Hgb Conc. 32.7 g/dL (32.0-36.0); Monocytes # (auto) 0.4 10 ^3/uL (0-1.3); Monocytes % (auto) 4.2 % (0.0-12.0); Neutrophils % (auto) 86.7 % (37.0-80.0); Nucleated Red Blood Cells % 0.1 %; Red Blood Cells 3.51 10^6/uL (4.5-5.90); Red Cell Distribution Width 14.8 % (11.8-14.3); White Blood Cell 10.2 10^3/uL (4.4-10.8)
[2021-11-28 16:45] VITALS: BP 98/59
[2021-11-28 22:00] VITALS: BP 100/62
[2021-11-28] MEDS: SENNA 8.6 MG TAB PO SCH (22:00)
[2021-11-29] MEDS: HYDROmorphone HCL 2 MG/ML VL/or syr IV PRN ×4 (00:55→21:13)
[2021-11-29 05:00] VITALS: BP 95/58
[2021-11-29] MEDS: PIPERACILLIN-TAZOB 3.375GM 100 ML IV SCH ×3 (05:37→17:11)
[2021-11-29] MEDS: SODIUM CHLOR 0.9% PF (SALINE LOCK) 10ML VIAL/SYR IV SCH ×3 (05:37→21:19)
[2021-11-29] MEDS: SUCRALFATE 1 GM/10 ML ORAL SUSP PO SCH ×4 (06:28→21:19)
[2021-11-29 06:34] LABS: Basophils # (auto) 0 10 ^3/uL (0-0.2); Basophils % (auto) 0.4 % (0.0-2.0); Eosinophils # (auto) 0.1 10 ^3/uL (0-0.8); Mean Corpuscular Hemoglobin 29.4 pg (28.0-32.0); Monocytes # (auto) 0.6 10 ^3/uL (0-1.3); Neutrophils # (auto) 7.6 10 ^3/uL (1.6-8.6); Red Blood Cells 2.94 10^6/uL (4.5-5.90); Red Cell Distribution Width 14.7 % (11.8-14.3)
[2021-11-29 06:37] LABS: Eosinophils % (auto) 0.9 % (0.0-7.0); Hematocrit 25.8 % (41.0-53.0); Hemoglobin 8.7 g/dL (13.5-17.5); Lymphocytes % (auto) 11.1 % (10.0-50.0); Mean Corpuscular Hgb Conc. 33.5 g/dL (32.0-36.0); Mean Corpuscular Volume 87.8 fL (80.0-100.0); Monocytes % (auto) 6.8 % (0.0-12.0); Neutrophils % (auto) 80.8 % (37.0-80.0); White Blood Cell 9.5 10^3/uL (4.4-10.8)
[2021-11-29 09:00] VITALS: BP 113/77
[2021-11-29] MEDS: MICAFUNGIN SODIUM 100 MG in SODIUM CHL 0.9% 100 ML IV SCH (09:01)
[2021-11-29] MEDS: PANTOPRAZOLE 40 MG/10 ML VIAL INJ IV SCH ×2 (09:01→21:19)
[2021-11-29 13:00] VITALS: BP 107/67
[2021-11-29 17:00] VITALS: BP 123/78
[2021-11-29] MEDS: SENNA 8.6 MG TAB PO SCH (21:11)
[2021-11-29 22:00] VITALS: BP 113/74
[2021-11-30] MEDS: PIPERACILLIN-TAZOB 3.375GM 100 ML IV SCH ×2 (01:14→06:05)
[2021-11-30] MEDS ORDERED: diphenhdrAMINE HCL 50 MG/1 ML VL IV ONE (01:30)
[2021-11-30] MEDS: HYDROmorphone HCL 2 MG/ML VL/or syr IV PRN ×3 (04:26→14:14)
[2021-11-30 05:00] VITALS: BP 107/62
[2021-11-30] MEDS: SODIUM CHLOR 0.9% PF (SALINE LOCK) 10ML VIAL/SYR IV SCH ×3 (06:05→21:55)
[2021-11-30] MEDS: SUCRALFATE 1 GM/10 ML ORAL SUSP PO SCH ×4 (06:06→21:55)
[2021-11-30 07:01] LABS: Basophils # (auto) 0.1 10 ^3/uL (0-0.2); Eosinophils # (auto) 0.1 10 ^3/uL (0-0.8); Eosinophils % (auto) 1.4 % (0.0-7.0); Neutrophils # (auto) 6.2 10 ^3/uL (1.6-8.6); Neutrophils % (auto) 75.9 % (37.0-80.0); Red Cell Distribution Width 14.8 % (11.8-14.3); White Blood Cell 8.2 10^3/uL (4.4-10.8)
[2021-11-30 07:02] LABS: Basophils % (auto) 0.6 % (0.0-2.0); Hematocrit 27.4 % (41.0-53.0); Hemoglobin 8.9 g/dL (13.5-17.5); Lymphocytes # (auto) 1.1 10 ^3/uL (0.4-5.4); Lymphocytes % (auto) 13.7 % (10.0-50.0); Mean Corpuscular Hemoglobin 28.4 pg (28.0-32.0); Mean Corpuscular Hgb Conc. 32.6 g/dL (32.0-36.0); Mean Corpuscular Volume 87.1 fL (80.0-100.0); Monocytes # (auto) 0.7 10 ^3/uL (0-1.3); Monocytes % (auto) 8.4 % (0.0-12.0); Red Blood Cells 3.14 10^6/uL (4.5-5.90)
[2021-11-30 10:21] VITALS: BP 105/63
[2021-11-30] MEDS: PANTOPRAZOLE 40 MG/10 ML VIAL INJ IV SCH ×2 (10:25→21:55)
[2021-11-30] MEDS: MICAFUNGIN SODIUM 100 MG in SODIUM CHL 0.9% 100 ML IV SCH (10:26)
[2021-11-30 13:00] VITALS: BP 103/70
[2021-11-30 17:00] VITALS: BP 126/71
[2021-11-30 18:21] VITALS: BP 126/71
[2021-11-30] MEDS: SENNA 8.6 MG TAB PO SCH (21:57)
[2021-11-30] MEDS: MORPHINE SULFATE INJ 2 MG/ml SYRG IV PRN (21:58)
[2021-11-30 22:00] VITALS: BP 103/62
[2021-12-01] MEDS: MORPHINE SULFATE INJ 2 MG/ml SYRG IV PRN (03:05)
[2021-12-01 05:00] VITALS: BP 101/67
[2021-12-01 05:33] LABS: Basophils # (auto) 0.1 10 ^3/uL (0-0.2); Eosinophils # (auto) 0.1 10 ^3/uL (0-0.8); Hemoglobin 8.9 g/dL (13.5-17.5); White Blood Cell 7.9 10^3/uL (4.4-10.8)
[2021-12-01 05:36] LABS: Basophils % (auto) 1.1 % (0.0-2.0); Eosinophils % (auto) 1.4 % (0.0-7.0); Hematocrit 26.5 % (41.0-53.0); Lymphocytes # (auto) 1.2 10 ^3/uL (0.4-5.4); Lymphocytes % (auto) 15.5 % (10.0-50.0); Mean Corpuscular Hemoglobin 28.8 pg (28.0-32.0); Mean Corpuscular Hgb Conc. 33.5 g/dL (32.0-36.0); Mean Corpuscular Volume 85.7 fL (80.0-100.0); Monocytes # (auto) 0.7 10 ^3/uL (0-1.3); Monocytes % (auto) 8.4 % (0.0-12.0); Neutrophils # (auto) 5.9 10 ^3/uL (1.6-8.6); Neutrophils % (auto) 73.6 % (37.0-80.0); Red Blood Cells 3.09 10^6/uL (4.5-5.90); Red Cell Distribution Width 14.6 % (11.8-14.3)
[2021-12-01] MEDS: SODIUM CHLOR 0.9% PF (SALINE LOCK) 10ML VIAL/SYR IV SCH (06:15)
[2021-12-01] MEDS: SUCRALFATE 1 GM/10 ML ORAL SUSP PO SCH (06:17)
[2021-12-01 08:36] VITALS: BP 114/81
== END 2021-12-01 09:38 | DRG 710 ==
LOC: ER 11:33 → EDBD 11:33 → ICU WEST 17:06 → TELE-CENTR 11-24 19:05
PROVIDERS: ADMIT Internal Medicine; ATTEND Internal Medicine
PROC: 5A1945Z Respiratory Ventilation, 24-96 Consecutive Hours (ICD-10-PCS; principal; 2021-11-19)
PROC: 0BH17EZ Insertion of Endotracheal Airway into Trachea, Via Natural or Artificial Opening (ICD-10-PCS; 2021-11-19)
PROC: 30233N1 Transfusion of Nonautologous Red Blood Cells into Peripheral Vein, Percutaneous Approach (ICD-10-PCS; 2021-11-19)
PROC: 0DU907Z Supplement Duodenum with Autologous Tissue Substitute, Open Approach (ICD-10-PCS; 2021-11-20)
PROC: 0W9G0ZZ Drainage of Peritoneal Cavity, Open Approach (ICD-10-PCS; 2021-11-20)
PROC: 05H933Z Insertion of Infusion Device into Right Brachial Vein, Percutaneous Approach (ICD-10-PCS; 2021-11-26)
PROC: B54MZZA Ultrasonography of Right Upper Extremity Veins, Guidance (ICD-10-PCS; 2021-11-26)
DX: A41.9 Sepsis, unspecified organism (principal); J96.01 Acute respiratory failure with hypoxia; R65.21 Severe sepsis with septic shock; K26.5 Chronic or unspecified duodenal ulcer with perforation; K65.1 Peritoneal abscess; D62 Acute posthemorrhagic anemia; E87.3 Alkalosis; E11.10 Type 2 diabetes mellitus with ketoacidosis without coma; E87.6 Hypokalemia; N17.9 Acute kidney failure, unspecified; K52.9 Noninfective gastroenteritis and colitis, unspecified; Z20.822 Contact with and (suspected) exposure to COVID-19; F15.10 Other stimulant abuse, uncomplicated; F12.10 Cannabis abuse, uncomplicated; Z93.3 Colostomy status
CPT/HCPCS: 31500; 36415; 36556; 36600; 71045; 74175; 74176; 76700; 80048; 80053; 80202; 80307; 81001; 82010; 82805; 82962; 83605; 83690; 83735; 84100; 84478; 85007; 85014; 85018; 85025; 85027; 85610; 85652; 85730; 86141; 86850; 86900; 86901; 86920; 87040; 87070; 87075; 87077; 87081; 87186; 87205; 93005; 93306; 94002; 94003; 94640; 96361; 96374; 99291; C9113; G0378; J0131; J0330; J1815; J2185; J2248; J2250; J2405; J2543; J2704; J3480; J7060; J7131